=== PATIENT | female | born 1945 | race Caucasian/White ===

== ENCOUNTER → 2016-02-22 | Outpatient (CLI) | payer MEDICARE, MEDICAID ==
[2016-02-22 16:47] LABS: ALBUMIN 3.8 GM/DL (3.2-5.2); ALBUMIN/GLOBULIN RATIO 1.46 (1.00-1.93); ALKALINE PHOSPHATASE 69 U/L (45-117); ALT/SGPT 21 U/L (12-78); ANION GAP 8 MEQ/L (8-16); AST/SGOT 14 U/L (15-37); BILIRUBIN,TOTAL 0.3 MG/DL (0.2-1.0); BLOOD UREA NITROGEN 16 MG/DL (7-18); CALCIUM LEVEL 9.1 MG/DL (8.8-10.2); CARBON DIOXIDE LEVEL 29 MEQ/L (21-32); CHLORIDE LEVEL 108 MEQ/L (98-107); CREATININE FOR GFR 0.91 MG/DL (0.55-1.02); GLOMERULAR FILTRATION RATE > 60.0 (>39); GLUCOSE, FASTING 99 MG/DL (83-110); SODIUM LEVEL 145 MEQ/L (136-145); TOTAL PROTEIN 6.4 GM/DL (6.4-8.2)
[2016-02-22 16:48] LABS: BASO % 0.4 % (0.0-1.0); EOS # 0.1 K/mm3 (0.0-0.50); EOS % 1.3 % (0.0-3.0); LARGE UNSTAINED CELL # 0.2 K/mm3 (0.0-0.4); LARGE UNSTAINED CELL % 2.1 % (0.0-4.0); LYMPH # 1.1 K/mm3 (1.5-4.5); LYMPH % 15.8 % (24.0-44.0); MEAN CORPUSCULAR HEMOGLOBIN 31.9 pg (27.0-33.0); MEAN CORPUSCULAR HGB CONC 35.1 g/dl (32.0-36.5); MEAN CORPUSCULAR VOLUME 91.1 fl (80.0-96.0); MONO # 0.4 K/mm3 (0.0-0.8); NEUTROPHILS # 5.4 K/mm3 (1.8-7.7); NEUTROPHILS % 75.4 % (36.0-66.0); PLATELET COUNT, AUTOMATED 339 k/mm3 (150-450); RED CELL DISTRIBUTION WIDTH 12.7 % (11.5-14.5); WHITE BLOOD COUNT 7.1 K/mm3 (4.0-10.0)
== END ==
LOC: M LAB 15:32
PROVIDERS: ATTEND Psychiatry & Neurology Neurology
DX: F03.90 Unspecified dementia, unspecified severity, without behavioral disturbance, psychotic disturbance, mood disturbance, and anxiety (principal); R41.0 Disorientation, unspecified

== ENCOUNTER → 2019-07-25 | Outpatient (REF) | payer MEDICARE, MEDICAID ==
[~2019-07-25] MED LIST: ASPI-226 PO; BUPR-69 PO; CALC600T17 PO; CYAN100050 PO; DOCU100C16 PO; FENO48TA7 PO; GABA-845 PO; GLUC500C55 PO; MACR100C43 PO; MEMA10TA19 PO; PARO20TA3 PO; PROP10TA56 PO; ROSU10TA6 PO; TAB-TAB3 PO; VITA-145 PO
[2019-07-25 18:00] LABS: APPEARANCE, URINE CLOUDY (CLEAR); BACTERIA, URINE AUTO NEGATIVE (NEGATIVE); BILIRUBIN, URINE AUTO NEGATIVE (NEGATIVE); BLOOD, URINE BLOOD 3+ (NEGATIVE); COLOR, URINE AMBER (YELLOW); GLUCOSE, URINE (UA) AUTO NEGATIVE (NEGATIVE); KETONE, URINE AUTO NEGATIVE (NEGATIVE); LEUKOCYTE ESTERASE, URINE AUTO TRACE (NEGATIVE); MUCUS, URINE SMALL (NEGATIVE); NITRITE, URINE AUTO NEGATIVE (NEGATIVE); PROTEIN, URINE AUTO 2+ mg/dL (NEGATIVE); RBC, URINE AUTO TNTC /HPF (0-3); SQUAMOUS EPITHELIAL CELL UR AU 1 /HPF (0-6); UROBILINOGEN, URINE AUTO 0.2 mg/dL (0.0-2.0); WBC, URINE AUTO 28 /HPF (0-3)
== END ==
LOC: M SMT 17:02
PROVIDERS: ATTEND Nurse Practitioner Women's Health
DX: R31.0 Gross hematuria (principal)
CPT/HCPCS: 81001; 87086; G0463

== ENCOUNTER → 2019-08-22 | Outpatient (REF) | payer MEDICARE, MEDICAID | LOC: M SMT 17:38 | PROVIDERS: ATTEND Urology | DX: N13.30 Unspecified hydronephrosis (principal); R31.0 Gross hematuria ==

== ENCOUNTER → 2019-10-04 | Outpatient (CLI) | payer MEDICARE, MEDICAID | LOC: M LABSMTC 09:32 | PROVIDERS: ATTEND Anesthesiology | DX: Z01.812 Encounter for preprocedural laboratory examination (principal); Z20.828 Contact with and (suspected) exposure to other viral communicable diseases ==

== ENCOUNTER 2019-10-09 09:02 | Day surgery (SDC) | payer MEDICARE, MEDICAID ==
[~2019-10-09] VITALS: Ht 165.1 cm; Wt 76.1 kg
[~2019-10-09 09:02] MED LIST changes: -ASPI-226 PO; -BUPR-69 PO; -CALC600T17 PO; +CONRAY-60 60% 50ML VIAL (Q9961) As Ordered ONE; -CYAN100050 PO; -DOCU100C16 PO; -FENO48TA7 PO; -GABA-845 PO; -GLUC500C55 PO; +KETOROLAC 60MG 2ML VIAL As Ordered ONE; +LIDOCAINE 2% 100MG/5ML SDV (FOR ANES.) As Ordered ONE; -MACR100C43 PO; -MEMA10TA19 PO; +MIDAZOLAM INJ 2MG/2ML VIAL (J2250 PER 1MG) As Ordered ONE; +ONDANSETRON 4MG/2ML VIAL As Ordered ONE; -PARO20TA3 PO; -PROP10TA56 PO; -ROSU10TA6 PO; -TAB-TAB3 PO; -VITA-145 PO; +dexameTHASONE 4 MG/ML 1ML VIAL (J1100 PER 1MG) As Ordered ONE; +fentaNYL 100 MCG/2 ML INJECTION (J3010) As Ordered ONE; +propofoL 200 MG/20 ML VIAL As Ordered ONE
[2019-10-09] MEDS ORDERED: ceFAZolin 2 GM/D5W 50 ML IV BAG (J0690 PER 500MG) As Ordered ONE (09:34)
[2019-10-09] MEDS ORDERED: TAB-TAB3 PO (09:38)
[2019-10-09] MEDS ORDERED: BUPR-69 PO (09:38)
[2019-10-09] MEDS ORDERED: CYAN100050 PO (09:38)
[2019-10-09] MEDS ORDERED: PROP10TA56 PO (09:38)
[2019-10-09] MEDS ORDERED: ROSU10TA6 PO (09:38)
[2019-10-09] MEDS ORDERED: PARO20TA3 PO (09:38)
[2019-10-09] MEDS ORDERED: FENO48TA7 PO (09:38)
[2019-10-09] MEDS ORDERED: GABA-845 PO (09:38)
[2019-10-09] MEDS ORDERED: GLUC500C55 PO (09:38)
[2019-10-09] MEDS ORDERED: ASPI-226 PO (09:38)
[2019-10-09] MEDS ORDERED: MEMA10TA19 PO (09:38)
[2019-10-09] MEDS ORDERED: CALC600T17 PO (09:38)
[2019-10-09] MEDS ORDERED: VITA-145 PO (09:38)
[2019-10-09] MEDS ORDERED: ceFAZolin SOD 2 GM in IV 1 EA IV ONE (10:30)
[2019-10-09] MEDS ORDERED: ePHEDrine SULFATE 25 MG/5 ML(5MG/ML) SYRINGE As Ordered ONE (10:43)
[2019-10-09] MEDS ORDERED: LR 1,000 ML IV SCH (11:45)
[2019-10-09] MEDS ORDERED: fentaNYL 100 MCG/2 ML INJECTION (J3010) IV PRN (11:45)
[2019-10-09] MEDS ORDERED: ONDANSETRON 4MG/2ML VIAL IV PRN (11:45)
[2019-10-09] MEDS ORDERED: PERCOCET 5MG/325MG TAB PO PRN (11:45)
[2019-10-09] MEDS ORDERED: oxyCODONE 5MG TAB PO PRN (11:45)
[2019-10-09] MEDS ORDERED: propofoL 200 MG/20 ML VIAL As Ordered ONE (11:57)
[2019-10-09 12:40] VITALS: BP 136/59
--- NOTE | 2019-10-19 17:23 | REP ---
RETROGRADE PYELOGRAM: 5-VIEWS HISTORY: Right-sided stent placement. Cystoscopy. 29 seconds of fluoroscopy time was reported. FINDINGS: A sequence of five last image hold fluoroscopically obtained spot radiographs of the abdomen document right ureteral cannulation, contrast injection, hydronephrosis, and double pigtail stent placement. MTDD
--- NOTE | 2019-10-28 11:19 | RO ---
DATE OF OPERATION: October 09, 2019 PREOPERATIVE DIAGNOSES: 1. Gross hematuria. 2. Right hydroureteronephrosis. 3. POSTOPERATIVE DIAGNOSES: 4. Right ureteral tumor. 5. Gross hematuria. 6. Right hydroureteronephrosis. PROCEDURES: 1. Cystoscopy. 2. Right ureteroscopy with biopsies of ureteral tumor. 3. Right retrograde pyelogram with intraoperative interpretation of images. 4. Right ureteral stent placement. SURGEON: Emerson Oates MD. FULLING MACHINE OPERATOR: None. ANESTHESIA: General. OPERATIVE INDICATIONS: This is a 74-year-old female who has been having gross hematuria. She was also found to have a moderate amount of hydroureteronephrosis on recent CAT scan. She was brought to the operating room today to work this up. DESCRIPTION OF PROCEDURE: The patient was brought to the operating room and general anesthesia was induced. Prophylactic antibiotics were infused. She was placed in the dorsal lithotomy position, prepped, and draped in the usual sterile fashion. A rigid cystoscope was inserted into the urethral meatus and advanced to the bladder. The bladder was thoroughly examined. The only abnormality that was seen was blood emanating from the right ureteral orifice. At this point, a 5-Polish open-ended ureteral catheter was used to cannulate the right ureteral orifice. A retrograde pyelogram was performed and it was notable for a filling defect in the mid ureter. At this point, a guidewire was advanced up the right collecting system. I went up the right collecting system with a flexible ureteroscope and within the mid ureter, a collection of papillary tumors was seen. Several biopsies were obtained in this area. I also obtained ureteral washings of this area. I then advanced the ureteroscope past this area and there appeared to be several tumors occupying about a 3-4 cm length of the mid right ureter. Beyond that point, the right ureter and kidney were severely hydronephrotic. No additional tumors were seen in the kidney or the ureter beyond the mid level. There were no stones seen. At this point, the ureteroscope was removed along with the access sheath and no additional tumors were seen inside the distal ureter. I then utilized the guidewire to advance a 7-Polish x 22-32 cm JJ ureteral stent into the right collecting system. The wire was removed and there were adequate curls of the stent in the right renal pelvis and in the bladder. The bladder was emptied of all fluids. This marked the conclusion of the procedure. The patient was taken out of the dorsal lithotomy position, awakened from anesthesia, and transported to the recovery room in stable condition. ESTIMATED BLOOD LOSS: 10 mL. COMPLICATIONS: None. SPECIMEN: Biopsies of right ureteral tumors, right ureteral washings for cytology. PLAN: The patient will follow up in the Urology Clinic within the next week or two to go over pathology results. Assuming this comes back as urothelial carcinoma, we will likely need to set her up for a right nephroureterectomy. CHITRA
== END 2019-10-09 12:42 | disposition home or self-care (01) ==
LOC: M SDC 09:02
PROVIDERS: ATTEND Urology
DX: C66.1 Malignant neoplasm of right ureter (principal); N13.4 Hydroureter; Z79.82 Long term (current) use of aspirin
CPT/HCPCS: 52332; 52354; 74420; 88108; 88305; C2617; J0690; J1100; J1885; J2250; J2405; J3010; Q9961

== ENCOUNTER → 2019-11-08 | Outpatient (CLI) | payer MEDICARE, MEDICAID ==
[~2019-11-08] MED LIST changes: +ASPI-226 PO; +BUPR-69 PO; +CALC600T17 PO; -CONRAY-60 60% 50ML VIAL (Q9961) As Ordered ONE; +CYAN100050 PO; +DOCU100C16 PO; +FENO48TA7 PO; +GABA-845 PO; +GLUC500C55 PO; -KETOROLAC 60MG 2ML VIAL As Ordered ONE; -LIDOCAINE 2% 100MG/5ML SDV (FOR ANES.) As Ordered ONE; +MACR100C43 PO; +MEMA10TA19 PO; -MIDAZOLAM INJ 2MG/2ML VIAL (J2250 PER 1MG) As Ordered ONE; -ONDANSETRON 4MG/2ML VIAL As Ordered ONE; +PARO20TA3 PO; +PROP10TA56 PO; +ROSU10TA6 PO; +TAB-TAB3 PO; +VITA-145 PO; -dexameTHASONE 4 MG/ML 1ML VIAL (J1100 PER 1MG) As Ordered ONE; -fentaNYL 100 MCG/2 ML INJECTION (J3010) As Ordered ONE; -propofoL 200 MG/20 ML VIAL As Ordered ONE
== END ==
LOC: M LABSMTC 09:31
PROVIDERS: ATTEND Anesthesiology
DX: Z01.812 Encounter for preprocedural laboratory examination (principal); Z20.828 Contact with and (suspected) exposure to other viral communicable diseases
CPT/HCPCS: C9803; U0003

== ENCOUNTER 2019-11-13 05:59 | Inpatient (IN) | payer MEDICARE, MEDICAID ==
[~2019-11-13] VITALS: Ht 167.6 cm; Wt 76.6 kg
[~2019-11-13 05:59] MED LIST changes: -DOCU100C16 PO; -MACR100C43 PO
[2019-11-13] MEDS ORDERED: LR 1,000 ML IV ONE (06:00)
[2019-11-13] MEDS ORDERED: ceFAZolin SOD 2 GM in IV 1 EA IV ONE (06:00)
[2019-11-13] MEDS ORDERED: BUPIVACAINE HCL 0.25% 30ML VIAL As Ordered ONE (07:11)
[2019-11-13] MEDS ORDERED: LIDOCAINE 1% SDV 30ML VIAL As Ordered ONE (07:11)
[2019-11-13] MEDS ORDERED: ROCURONIUM BROMIDE 50 MG/5 ML VIAL As Ordered ONE ×3 (07:21→11:22)
[2019-11-13] MEDS ORDERED: LIDOCAINE 2% 100MG/5ML SDV (FOR ANES.) As Ordered ONE (07:21)
[2019-11-13] MEDS ORDERED: propofoL 200 MG/20 ML VIAL As Ordered ONE (07:21)
[2019-11-13] MEDS ORDERED: dexameTHASONE 4 MG/ML 1ML VIAL (J1100 PER 1MG) As Ordered ONE (07:21)
[2019-11-13] MEDS ORDERED: fentaNYL 250 MCG/5 ML INJECTION (J3010) As Ordered ONE (07:22)
[2019-11-13] MEDS ORDERED: MIDAZOLAM INJ 2MG/2ML VIAL (J2250 PER 1MG) As Ordered ONE (07:22)
[2019-11-13] MEDS: NS 1,000 ML IV SCH (07:27)
[2019-11-13] MEDS ORDERED: ONDANSETRON 4MG/2ML VIAL IV PRN ×2 (07:30→14:15)
[2019-11-13] MEDS ORDERED: MORPHINE 2 MG/ML 1ML VIAL (J2270) IV PRN (07:30)
[2019-11-13] MEDS ORDERED: ACETAMINOPHEN TAB 650MG DOSE (2X325MG) PO PRN (07:30)
[2019-11-13] MEDS ORDERED: PERCOCET 5MG/325MG TAB PO PRN (07:30)
[2019-11-13] MEDS ORDERED: LACRILUBE (AKWA TEARS) OPHTH OINT 3.5 GM As Ordered ONE (08:00)
[2019-11-13] MEDS ORDERED: SUGAMMADEX SODIUM 500 MG/5 ML VIAL (BRIDION) As Ordered ONE (09:51)
[2019-11-13] MEDS ORDERED: ACETAMINOPHEN 1000MG 100ML IV BTL (OFIRMEV) (J0131 PER 10MG) As Ordered ONE (09:51)
[2019-11-13] MEDS ORDERED: ONDANSETRON 4MG/2ML VIAL As Ordered ONE (09:51)
[2019-11-13] MEDS ORDERED: HYDROmorphone HCL 2 MG/ML 1ML VIAL (J1170) As Ordered ONE (10:12)
[2019-11-13] MEDS ORDERED: ePHEDrine SULFATE 25 MG/5 ML(5MG/ML) SYRINGE As Ordered ONE (10:49)
[2019-11-13 14:14] LABS: HEMATOCRIT 39.6 % (36.0-47.0); HEMOGLOBIN 12.3 g/dl (12.0-15.5); MEAN CORPUSCULAR HEMOGLOBIN 27.8 pg (27.0-33.0); MEAN CORPUSCULAR HGB CONC 31.1 g/dl (32.0-36.5); MEAN CORPUSCULAR VOLUME 89.4 fl (80.0-96.0); PLATELET COUNT, AUTOMATED 306 10^3/uL (150-450); RED BLOOD COUNT 4.43 10^6/uL (4.00-5.40); WHITE BLOOD COUNT 13.1 10^3/uL (4.0-10.0)
[2019-11-13] MEDS ORDERED: LR 1,000 ML IV SCH (14:15)
[2019-11-13] MEDS ORDERED: fentaNYL 100 MCG/2 ML INJECTION (J3010) IV PRN (14:15)
--- NOTE | 2019-11-13 14:41 | ROOPDOC ---
[facility] Report Of Operation Report of Operation DATE OF PROCEDURE: 11/13/19 PREPROCEDURE DIAGNOSES: Urothelial Carcinoma of the Right Ureter. POSTPROCEDURE DIAGNOSES: Urothelial Carcinoma of the Right Ureter. PROCEDURE: Right Robotic-assisted Laparoscopic Nephroureterectomy, Cystoscopy with Incision of the Right Ureteral Orifice. SURGEON: Donald Hansen MD AUTOMOTIVE WINDOW TINTER: Leonor Baker NP ANESTHESIA: General OPERATIVE INDICATIONS: This is a 74 year old female who was found recently to have a invasive high grade urothelial carcinoma occupying a 3-4cm segment of her mid right ureter. She was brought to the operating room today for the above procedure. DESCRIPTION OF PROCEDURE: The patient was brought to the operating room and general anesthesia was induced. Prophylactic antibiotics were infused. The patient was then placed in the dorsal lithotomy position and prepped and draped in the usual sterile fashion. A rigid cystoscope was inserted into the bladder and the previously placed right ureteral stent was seen. At this point a resectoscope was inserted into the bladder and a circumferential incision was made around the right ureteral orifice using a Feldman Knife. The incision was carried down through the muscle layer. Once this was done and hemostasis was established an 18Fr Vázquez catheter was placed and the balloon was inflated with 10cc of sterile water. The catheter was then placed to gravity drainage. The patient was then taken out of the dorsal lithotomy position. She was then repositioned in the left lateral decubitus position. All pressure points were appropriately padded and an axillary roll was placed. She was secured to the table with tape. The patient was then prepped and draped in the usual sterile fashion. The initial incision was for an 8mm port in line with the 11th rib along the lateral rectus margin. A Veress needle was then utilized to achieve the pneumoperitoneum. An 8mm port was then placed in through this incision and through which the camera was inserted. There were no injuries from Veress needle placement or initial trocar placement. The remaining ports were then placed under vision. The right hand robotic port was placed along the costal margin. Another 5 mm port was placed just inferior to the xyphoid for access for a liver retractor. A 12mm robotic port was placed just inferior to the camera port, also on the lateral rectus margin. The left hand robotic port was placed between the anterior-superior iliac spine and the umbilicus. A 15mm corporate law assistant port was placed inferior and medial to the camera port. The robot was then docked. We began by lifting up the liver with a laparoscopic locking Allis clamp. Next the right colon was dissected off of Gerota's fascia. We then Kocherized the duodenum. At this point the inferior vena cava (IVC) was identified. A plane was made onto the lateral aspect of the IVC. The patient had 2 right renal veins and one right renal artery. The artery was carefully dissected and then ligated with Weck clips. It was then transected, leaving 2 Weck clips on the stay side and 1 on the kidney side. Next, a robotic 45mm stapler was utilized to ligate and transect the larger of the two right renal veins. The smaller vein was ligated with Weck clips and then transected. Once the hilum was taken, a plane onto the upper pole of the kidney was created and the right adrenal gland was mobilized off of the kidney. The kidney was then carefully dissected on all sides until it was only connected by the right ureter. The right ureter was then dissected down to the level of the bladder. The bladder was then opened at the right ureterovesical junction and the distal right ureter was released from the bladder. The previously placed stent was taken out with the kidney and ureter. The right kidney and ureter were then placed in a large Endocatch bag for future retrieval. We then checked for hemostasis and it appeared excellent. Jose Francisco hemostatic agent was then placed in the nephrectomy bed. At this point a Juice Bautista drain was brought in through one of the robotic port sites and the distal end of it was placed in the pelvis near the bladder. Once satisfied with hemostasis, the robot was undocked. We then used a Darnell-Meme fascial closure device to place a #0 Vicryl free tie through the fascia of the 15 mm camera port site. We then extended the 12 mm port site and used it as the extraction incision. We then dissected down to the fascia. The fascia was then extended using electrocautery. The muscle was bluntly spread. The specimen was then extracted through this incision. It was handed off the table to send for pathology. We then closed the fascia of the extraction incision using a running #0 Vicryl suture. At this point, the abdomen was reinsufflated and we looked back in with the camera and there was no bleeding underneath the extraction site. No abdominal contents were caught within the closure either. We then removed all the ports under direct vision and there was no bleeding from any of the port sites. At this point, the previously placed #0 Vicryl free ties were tied down and all the incisions were thoroughly irrigated. The drain was secured to the skin with #2-0 Ethilon suture. The subcutaneous tissue of the extraction incision was then reapproximated using interrupted #3-0 Vicryl suture. We then closed the skin of each site using a running #4-0 subcuticular Monocryl stitch. Local anesthetic was then applied to each incision and Dermabond was then applied and this marked the conclusion of the procedure. The patient was then taken out of the left lateral decubitus position, awakened from anesthesia and transported to the recovery room in stable condition. ESTIMATED BLOOD LOSS: 25 mL INTRAOPERATIVE COMPLICATIONS: None SPECIMENS: Right kidney and ureter. PLAN: The patient will be admitted to the hospital postoperatively and she will be discharged home once her renal function is stable and she is tolerating a regular diet. DONALD HANSEN MD Nov 13, 2019 14:37
[2019-11-13 14:44] LABS: CALCIUM LEVEL 8.7 MG/DL (8.8-10.2); CREATININE FOR GFR 1.32 MG/DL (0.55-1.30); GLOMERULAR FILTRATION RATE 41.7 (>39); POTASSIUM SERUM 4.1 MEQ/L (3.5-5.1)
[2019-11-13] MEDS: oxyCODONE 5MG TAB PO PRN ×2 (14:50→15:21)
[2019-11-13] MEDS ORDERED: oxyCODONE 5MG TAB As Ordered ONE (15:23)
[2019-11-13 16:00] VITALS: BP 112/65
[2019-11-13 16:30] VITALS: BP 119/64
[2019-11-13] MEDS: ceFAZolin SOD 1 GM in D5W MINI-BAG PLUS 50 ML IV SCH (16:47)
[2019-11-13 17:30] VITALS: BP 128/61
[2019-11-13] MEDS: PARoxetine 20 MG TAB PO SCH (17:40)
[2019-11-13 18:30] VITALS: BP 123/62
[2019-11-13] MEDS: PERCOCET 5MG/325MG TAB PO PRN (19:31)
[2019-11-13 20:00] VITALS: BP 128/64
[2019-11-13] MEDS: MEMANTINE 5MG TABLET (NAMENDA) PO SCH (21:52)
[2019-11-13] MEDS: PROPRANOLOL 10 MG TAB PO SCH (21:53)
[2019-11-13] MEDS: GABAPENTIN 400 MG CAP PO SCH (21:53)
[2019-11-13] MEDS: DOCUSATE SODIUM 100 MG CAP PO SCH (21:53)
[2019-11-14] MEDS: NS 1,000 ML IV SCH (00:24)
[2019-11-14] MEDS: ceFAZolin SOD 1 GM in D5W MINI-BAG PLUS 50 ML IV SCH (00:24)
[2019-11-14] MEDS: PERCOCET 5MG/325MG TAB PO PRN ×2 (00:35→06:09)
[2019-11-14 01:29] VITALS: BP 116/59
[2019-11-14 06:04] VITALS: BP 105/60
[2019-11-14] MEDS: HEPARIN SOD (PORCINE) 5000UNITS/ML 1ML VIAL/SYRINGE SC SCH ×2 (06:08→14:36)
[2019-11-14 08:09] LABS: HEMOGLOBIN 10.2 g/dl (12.0-15.5); MEAN CORPUSCULAR HEMOGLOBIN 28.5 pg (27.0-33.0); MEAN CORPUSCULAR HGB CONC 31.8 g/dl (32.0-36.5); MEAN CORPUSCULAR VOLUME 89.7 fl (80.0-96.0); PLATELET COUNT, AUTOMATED 293 10^3/uL (150-450); RED BLOOD COUNT 3.58 10^6/uL (4.00-5.40); WHITE BLOOD COUNT 12.7 10^3/uL (4.0-10.0)
[2019-11-14 08:15] LABS: HEMATOCRIT 32.1 % (36.0-47.0)
[2019-11-14 08:24] LABS: CALCIUM LEVEL 7.8 MG/DL (8.8-10.2); CREATININE FOR GFR 1.46 MG/DL (0.55-1.30); GLOMERULAR FILTRATION RATE 37.1 (>39); POTASSIUM SERUM 4.1 MEQ/L (3.5-5.1)
[2019-11-14] MEDS ORDERED: buPROPion 100 MG TAB PO SCH (09:00)
[2019-11-14] MEDS ORDERED: ROSUVASTATIN 10 MG TAB (CRESTOR) PO SCH (09:00)
--- NOTE | 2019-11-14 09:02 | IPNPDOC ---
Subjective Review oF Systems Chief Complaint The patient is a 74-year-old female admitted with a reason for visit of Urothelial Carcinoma. Events since Last Encounter No acute events o/n. Good pain control. No vomiting. No f/c/ns. Objective Physical Examination General Exam: Alert, Cooperative, No Acute Distress ABDOMEN EXAM: Soft, Other (nondistended; incisions clean/dry/intact; REY w/ serosanguinous output) Other physical findings catheter draining clear yellow urine Vital Signs/I&O Vital Signs Date Time Temp Pulse Resp B/P (MAP) Pulse Ox O2 Delivery O2 Flow Rate FiO2 11/14/19 06:39 18 11/14/19 06:04 98.4 74 105/60 (75) 90 Nasal Cannula 2.0 I&O- Last 24 Hours up to 6 AM 11/14/19 06:00 Intake Total 4350 ml Output Total 1335 ml Balance 3015 ml Laboratory Data Labs 24H Laboratory Tests 2 11/13/19 13:57: Nucleated Red Blood Cells % (auto) 0.0, Anion Gap 7L, Glomerular Filtration Rate 41.7, Calcium Level 8.7L 11/14/19 06:45: Nucleated Red Blood Cells % (auto) 0.0, Anion Gap 5L, Glomerular Filtration Rate 37.1L, Calcium Level 7.8L CBC/BMP Laboratory Tests 11/13/19 13:57 11/14/19 06:45 Assessment/Plan Date Seen The patient was seen on 11/14/19. Patient Summary This is a 74 y/o F POD1 s/p R robotic nephroureterectomy. She is doing well. Hb 10.2. Cr 1.5. Vitals stable. Good UOP. Normal REY output. Plan/VTE VTE Prophylaxis Ordered?: Yes VTE Exclusion Mechanical Proph: N/A:VTE Prophy Ordered VTE Exclusion Pharmacological: N/A:VTE Prophy Ordered Plan/Urinary Catheter Urinary Catheter: Other Catheter: (catheter will need to stay in for at least 7 days) Plan - d/c IVF - wean O2 as tolerated - percocet prn pain - ambulate - cont home meds - strict I/Os - SCDs in bed - SQH - incentive spirometry - advance diet as tolerated DONALD HANSEN MD Nov 14, 2019 09:02
[2019-11-14] MEDS: GABAPENTIN 400 MG CAP PO SCH (09:59)
[2019-11-14 10:00] VITALS: BP_SYST 105; BP_SYST 66; BP_DIAS 40; BP_DIAS 60
[2019-11-14] MEDS: PROPRANOLOL 10 MG TAB PO SCH (10:00)
[2019-11-14] MEDS: MEMANTINE 5MG TABLET (NAMENDA) PO SCH (10:00)
[2019-11-14] MEDS: DOCUSATE SODIUM 100 MG CAP PO SCH (10:01)
[2019-11-14] MEDS: PARoxetine 20 MG TAB PO SCH (10:01)
[2019-11-14 10:05] VITALS: BP 138/72
[2019-11-14 14:00] VITALS: BP 126/62
[2019-11-14] MEDS ORDERED: DOCU100C16 PO (16:40)
[2019-11-14] MEDS ORDERED: MACR100C43 PO (16:40)
--- NOTE | 2019-11-18 13:10 | DS ---
DATE OF ADMISSION: 11/13/2019 DATE OF DISCHARGE: 11/14/2019 ADMISSION DIAGNOSIS: Urothelial carcinoma of the right ureter. DISCHARGE DIAGNOSIS: Urothelial carcinoma of the right ureter. ADMITTING PHYSICIAN: Emerson Oates MD DISCHARGING PHYSICIAN: Emerson Oates MD PROCEDURE PERFORMED: Right robotic assisted laparoscopic nephroureterectomy on 11/13/2019. HISTORY OF PRESENT ILLNESS: This is a 74-year-old female who was found to have high-grade urothelial carcinoma of the mid right ureter on recent cystoscopy. She was brought to the operating room for the above-listed procedure and was admitted to the hospital postoperatively. HOSPITALIZATION COURSE: The patient was admitted postoperatively after undergoing the above-listed procedure. Her postoperative course was unremarkable. On postoperative day #1, all of her labs were within acceptable limits. Her hemoglobin was 10.2. Her serum creatinine was 1.46. She had excellent urine output. She had minimal output from her Juice Bautista drain. Her Juice Prat drain was therefore removed on postoperative day #1. She ambulated well without any difficulty. She was tolerating a regular diet. She had very good pain control and did not require any narcotic pain medication during her stay. Since she was doing well, she was deemed ready for discharge home on postoperative day #1. Her Juice Bautista drain was removed. She was discharged home on postoperative day #1 with a catheter in place. She will followup in the urology clinic in approximately 2 weeks for catheter removal and to discuss her pathology results. CHITRA
== END 2019-11-14 17:15 | disposition home or self-care (01) | DRG 658 ==
LOC: M OR 05:59 → M MS5PR 16:08
PROVIDERS: ADMIT Urology; ATTEND Urology
PROC: 0TT64ZZ Resection of Right Ureter, Percutaneous Endoscopic Approach (ICD-10-PCS; 2019-11-13)
PROC: 8E0W4CZ Robotic Assisted Procedure of Trunk Region, Percutaneous Endoscopic Approach (ICD-10-PCS; 2019-11-13)
PROC: 0TT04ZZ Resection of Right Kidney, Percutaneous Endoscopic Approach (ICD-10-PCS; principal; 2019-11-13 07:30)
DX: C66.1 Malignant neoplasm of right ureter (principal)

== ENCOUNTER → 2019-11-24 | Outpatient (CLI) | payer MEDICARE, MEDICAID ==
[~2019-11-24] MED LIST changes: +CYSTO-CONRAY II 17.2% 250ML VIAL (Q9958) As Ordered ONE; +DOCU100C16 PO; +MACR100C43 PO
--- NOTE | 2019-11-27 13:38 | REP ---
CYSTOGRAM The procedure was performed by JUN Galindo, under the direct supervision of Dr. Edward. The images were reviewed with Dr. Edward prior to dictation. The patient arrived to the department with an indwelling Vázquez catheter. 250 mL of Cysto-Conray II was instilled into the bladder in a retrograde flow. The bladder is normal in position and contour. There is no evidence of extravasation or urethral reflux. IMPRESSION: There is no evidence of extravasation or urethral reflux. 0.1 minutes of fluoroscopy time is utilized for this procedure. MTDD
== END ==
LOC: M RADPRO 11:26
PROVIDERS: ATTEND Nurse Practitioner Women's Health
DX: N13.30 Unspecified hydronephrosis (principal)
CPT/HCPCS: 51610; 74430; Q9958

== ENCOUNTER → 2019-11-27 | Outpatient (REF) | payer MEDICARE, MEDICAID ==
[~2019-11-27] MED LIST changes: -CYSTO-CONRAY II 17.2% 250ML VIAL (Q9958) As Ordered ONE
[2019-11-27 13:56] LABS: CALCIUM LEVEL 9.4 MG/DL (8.8-10.2); CREATININE FOR GFR 1.61 MG/DL (0.55-1.30); GLOMERULAR FILTRATION RATE 33.1 (>39); POTASSIUM SERUM 4.6 MEQ/L (3.5-5.1)
[2019-11-27 14:11] LABS: HEMATOCRIT 37.3 % (36.0-47.0); HEMOGLOBIN 11.4 g/dl (12.0-15.5); MEAN CORPUSCULAR HEMOGLOBIN 28.2 pg (27.0-33.0); MEAN CORPUSCULAR HGB CONC 30.6 g/dl (32.0-36.5); MEAN CORPUSCULAR VOLUME 92.3 fl (80.0-96.0); PLATELET COUNT, AUTOMATED 528 10^3/uL (150-450); RED BLOOD COUNT 4.04 10^6/uL (4.00-5.40); WHITE BLOOD COUNT 9.2 10^3/uL (4.0-10.0)
== END ==
LOC: M LABSMT 10:03
PROVIDERS: ATTEND Urology
DX: C68.9 Malignant neoplasm of urinary organ, unspecified (principal); Z90.5 Acquired absence of kidney

== ENCOUNTER → 2020-03-22 | Outpatient (REF) | payer MEDICARE, MEDICAID ==
[~2020-03-22] MED LIST changes: -VITA-145 PO; +VITAD1000T PO
== END ==
LOC: M LAB REF 16:53
PROVIDERS: ATTEND Internal Medicine Nephrology
DX: N39.0 Urinary tract infection, site not specified (principal)

== ENCOUNTER → 2020-05-14 | Outpatient (CLI) | payer MEDICARE, MEDICAID ==
[2020-05-14 17:27] LABS: BASO % 0.4 % (0.0-1.0); EOS # 0.1 10^3/uL (0.0-0.5); EOS % 1.5 % (0.0-3.0); HEMATOCRIT 38.2 % (36.0-47.0); LYMPH # 1.6 10^3/uL (1.5-5.0); MEAN CORPUSCULAR HEMOGLOBIN 28.6 pg (27.0-33.0); MEAN CORPUSCULAR HGB CONC 31.4 g/dl (32.0-36.5); MONO # 0.6 10^3/uL (0.0-0.8); MONO % 7.4 % (2.0-8.0); NEUTROPHILS # 5.3 10^3/uL (1.5-8.5); NEUTROPHILS % 69.6 % (36.0-66.0); PLATELET COUNT, AUTOMATED 329 10^3/uL (150-450); WHITE BLOOD COUNT 7.6 10^3/uL (4.0-10.0)
[2020-05-14 17:52] LABS: ALBUMIN 3.8 GM/DL (3.2-5.2); BILIRUBIN,TOTAL 0.2 MG/DL (0.2-1.0); CALCIUM LEVEL 9.1 MG/DL (8.8-10.2); CHOLESTEROL RISK RATIO 2.367 (<5); CREATININE FOR GFR 1.59 MG/DL (0.55-1.30); GLOMERULAR FILTRATION RATE 33.5 (>39); POTASSIUM SERUM 4.3 MEQ/L (3.5-5.1); TOTAL PROTEIN 6.6 GM/DL (6.4-8.2)
== END ==
LOC: M LAB 16:20
PROVIDERS: ATTEND Physician Assistant
DX: C67.9 Malignant neoplasm of bladder, unspecified (principal); E78.2 Mixed hyperlipidemia

== ENCOUNTER → 2020-05-14 | Outpatient (CLI) | payer MEDICARE, MEDICAID ==
[~2020-05-14] MED LIST changes: +ISOVUE-370 76% 100ML VIAL As Ordered ONE
--- NOTE | 2020-05-14 17:23 | ECGEPIP ---
[facility] Test Date: 2020-05-14 Pat Name: BISI MARRUFO Department: Room: - Gender: Female Marketing Analytics Specialist: NICK : [id number] Requested By: DONALD Linton Order Number: [id number] Reading MD: Warren Mccormick Measurements Intervals [place] Rate: 65 P: 25 ND: 198 QRS: 5 QRSD: 62 T: 72 QT: 406 QTc: 422 Interpretive Statements Normal sinus rhythm Low voltage QRS Cannot rule out Anteroseptal infarct , age undetermined Comparison tracing not on file Electronically Signed on 05-14-2020 17:23:08 EDT by Warren Mccormick
[2020-05-14 17:27] LABS: HEMATOCRIT 38.7 % (36.0-47.0); MEAN CORPUSCULAR HEMOGLOBIN 28.3 pg (27.0-33.0); MEAN CORPUSCULAR VOLUME 91.3 fl (80.0-96.0); PLATELET COUNT, AUTOMATED 326 10^3/uL (150-450); RED BLOOD COUNT 4.24 10^6/uL (4.00-5.40); WHITE BLOOD COUNT 7.8 10^3/uL (4.0-10.0)
[2020-05-14 17:49] LABS: CREATININE FOR GFR 1.6 MG/DL (0.55-1.30)
[2020-05-14 17:50] LABS: CALCIUM LEVEL 9.2 MG/DL (8.8-10.2); GLOMERULAR FILTRATION RATE 33.3 (>39); POTASSIUM SERUM 4.3 MEQ/L (3.5-5.1)
--- NOTE | 2020-05-14 18:22 | REP ---
INDICATION: PREOP TESTING LAB 1ST EKG 2ND XR 3RD CT 4TH. COMPARISON: . TECHNIQUE: Upright PA and lateral chest. FINDINGS: The lung wiggins are clear. Cardiac size is normal. There is scoliosis convex left at the thoracolumbar junction and right in the lumbar spine. The toni, mediastinum, and skeletal structures are otherwise unremarkable. IMPRESSION: No acute cardiopulmonary findings. Scoliosis. <Electronically signed by Luis Felipe Sung > 05/14/20 [id number]
--- NOTE | 2020-05-17 08:14 | REP ---
INDICATION: URERTHERAL CARCINOMA LAB 1ST EKG 2ND XR 3RD CT 4TH. COMPARISON: None TECHNIQUE: Axial precontrast, contrast-enhanced and delayed images from the lung bases to the pubic symphysis using 100 cc Isovue 370 intravenous contrast material. Coronal and sagittal reformations obtained. This CT examination was performed using the following dose reduction techniques: Automated exposure control, adjustment of mA and/or kv according to the patient's size, and the use of iterative reconstruction technique. FINDINGS: Patient is status post right nephrectomy. The left kidney includes multiple peripelvic simple cysts measuring up to 5 cm and no evidence for perinephric stranding, nephrolithiasis, hydronephrosis or mass lesion. Liver includes vague 1.1 cm hypodensity at the dome suggesting small cyst or hemangioma. Spleen, pancreas, gallbladder, bilateral adrenal glands are normal. The enteric system is without obstruction or acute inflammatory process. Scattered diverticula noted without acute diverticulitis. Pelvis demonstrates relatively normal uterus with possible small right fundal calcified fibroid. The bladder demonstrates enhancing lobulated mass along the posterior right bladder wall/trigone region suspicious for neoplastic process. Surrounding pelvic fat is unremarkable and no obvious pelvic adenopathy is identified. No ascites. No free air. No obvious adenopathy. Abdominal aorta without aneurysm or dissection. Musculoskeletal structures demonstrate degenerative changes without acute osseous abnormality. The lung bases demonstrate chronic appearing interstitial changes and bronchiectasis along with moderate areas of ground-glass opacity primarily involving the lingula and bases (left greater than right). There appears to be a 2.8 x 1.8 cm rounded structure along the right heart border which appears to be fluid density on precontrast and enhanced images but cannot exclude some element of enhancement on delayed images. While benign entities like pericardial cyst or duplication cyst are likely, mass lesion cannot be excluded and no prior examinations are available for comparison. IMPRESSION: 1. Nodular enhancing lesion along the right bladder trigone region suspicious for neoplasm and correlation is required. No associated pelvic fluid, stranding, or adenopathy noted. The patient is status post right nephrectomy. 2. Left kidney demonstrates benign peripelvic cysts. 3. Nonacute findings as noted above. 4. Questionable rounded low-density entity along the right-side of the cardiac border within the lower thorax may represent benign lesion and less likely mass although correlation and follow-up is required as no prior examinations are available for comparison. <Electronically signed by Elder Frank > 05/17/20 [id number]
== END ==
LOC: M RAD 16:06 → M LAB 16:06
PROVIDERS: ATTEND Urology
DX: Z01.818 Encounter for other preprocedural examination (principal); E78.2 Mixed hyperlipidemia; M41.9 Scoliosis, unspecified; N32.9 Bladder disorder, unspecified; I51.9 Heart disease, unspecified; Z90.5 Acquired absence of kidney; C68.9 Malignant neoplasm of urinary organ, unspecified
CPT/HCPCS: 36415; 71046; 74178; 80048; 85027; 93005; Q9967

== ENCOUNTER → 2020-06-04 | Outpatient (CLI) | payer MEDICARE, MEDICAID ==
[~2020-06-04] MED LIST changes: -ISOVUE-370 76% 100ML VIAL As Ordered ONE; +SERO1TAB3 PO; +THERTAB52 PO
== END ==
LOC: M LABSMTC 10:40
PROVIDERS: ATTEND Anesthesiology
DX: Z01.812 Encounter for preprocedural laboratory examination (principal); Z20.822 Contact with and (suspected) exposure to COVID-19

== ENCOUNTER 2020-06-09 09:07 | Day surgery (SDC) | payer MEDICARE, MEDICAID ==
[~2020-06-09] VITALS: Ht 162.6 cm; Wt 77.1 kg
[~2020-06-09 09:07] MED LIST changes: +LR 1,000 ML IV ONE; +ceFAZolin SOD 2 GM in IV 1 EA IV ONE
[2020-06-09] MEDS ORDERED: MIDAZOLAM INJ 2MG/2ML VIAL (J2250 PER 1MG) As Ordered ONE (10:15)
[2020-06-09] MEDS ORDERED: propofoL 200 MG/20 ML VIAL As Ordered ONE (10:15)
[2020-06-09] MEDS ORDERED: ROCURONIUM BROMIDE 50 MG/5 ML VIAL As Ordered ONE ×2 (10:15→11:24)
[2020-06-09] MEDS ORDERED: LIDOCAINE 2% 100MG/5ML SDV (FOR ANES.) As Ordered ONE (10:15)
[2020-06-09] MEDS ORDERED: fentaNYL 250 MCG/5 ML INJECTION (J3010) As Ordered ONE (10:15)
[2020-06-09] MEDS ORDERED: dexameTHASONE 4 MG/ML 1ML VIAL (J1100 PER 1MG) As Ordered ONE (10:15)
[2020-06-09] MEDS ORDERED: LACRILUBE (AKWA TEARS) OPHTH OINT 3.5 GM As Ordered ONE (10:46)
[2020-06-09] MEDS ORDERED: ePHEDrine SULFATE 25 MG/5 ML(5MG/ML) SYRINGE As Ordered ONE (10:50)
[2020-06-09] MEDS ORDERED: SUGAMMADEX SODIUM 500 MG/5 ML VIAL (BRIDION) As Ordered ONE (11:34)
[2020-06-09] MEDS ORDERED: ONDANSETRON 4MG/2ML VIAL As Ordered ONE (11:37)
[2020-06-09] MEDS ORDERED: ACETAMINOPHEN TAB 650MG DOSE (2X325MG) PO PRN (12:05)
[2020-06-09] MEDS ORDERED: ONDANSETRON 4MG/2ML VIAL IV PRN (12:05)
[2020-06-09] MEDS ORDERED: LR 1,000 ML IV SCH (12:05)
[2020-06-09] MEDS ORDERED: HYDROMORPHONE HCL 0.5 MG/ 0.5 ML SYRINGE (J1170 PER 1) IV PRN (12:05)
[2020-06-09] MEDS ORDERED: fentaNYL 100 MCG/2 ML INJECTION (J3010) IV PRN (12:05)
[2020-06-09] MEDS ORDERED: oxyCODONE 5MG TAB PO PRN (12:05)
--- NOTE | 2020-06-09 12:44 | RO ---
OPERATIVE NOTE DATE OF OPERATION: 06/09/2020 PREOPERATIVE DIAGNOSIS: Urothelial carcinoma. POSTOPERATIVE DIAGNOSIS: Urothelial carcinoma. PROCEDURE: Cystoscopy, transurethral resection of bladder tumors (greater than 5 cm). SURGEON: Emerson Oates MD. PLASMA SPECIALIST: None. ANESTHESIA: General. OPERATION: This is a 75-year-old female with a history of high-grade urothelial carcinoma of the upper urinary tract status post right radical nephroureterectomy previously. On recent surveillance cystoscopy, she was found to have large tumors on the right side of her bladder, as well as near the bladder neck. She was brought to the operating room today for treatment. DESCRIPTION OF PROCEDURE: The patient was brought to the operating room and general anesthesia was induced. Prophylactic antibiotics were infused. She was placed in the dorsolithotomy position, prepped, and draped in the usual sterile fashion. At this point, a resectoscope was inserted into the urethral meatus and advanced to the bladder using a visual obturator. The bladder was then thoroughly examined. At this point, there were collection of tumors measuring around 6 cm occupying the right side of the bladder up to the right lateral wall. There were also tumors right at the bladder neck at approximately 7 o'clock. All of these tumors were then resected using a bipolar loop. Once the more superficial tumors were resected, that was sent off as bladder tumors. We then resected the base of all the bladder tumors and that was sent off as resection of bladder tumor base. Once we were certain all of the specimens were cleared from the bladder, hemostasis was obtained using coagulation current. Once satisfied with hemostasis, we observed the left ureteral orifice and it continued to efflux clear urine. The resectoscope was then removed from the bladder and then an 18-Macedonian Vázquez catheter was inserted into the bladder. The balloon was filled with 10 mL of sterile water and then the catheter was connected to gravity drainage. This marked the conclusion of the procedure. The patient was then taken out of the dorsolithotomy position, awakened from anesthesia, and transferred to the recovery room in stable condition. ESTIMATED BLOOD LOSS: 15 mL. COMPLICATIONS: None. SPECIMENS: Bladder tumors, resections of bladder tumor base. PLAN: The patient will follow-up in the urology clinic in approximately one week for catheter removal and for the pathology results.
[2020-06-09 14:00] VITALS: BP 150/63
== END 2020-06-09 14:15 | disposition home or self-care (01) ==
LOC: M SDC 09:07
PROVIDERS: ATTEND Urology
DX: C67.9 Malignant neoplasm of bladder, unspecified (principal); I10 Essential (primary) hypertension; E78.5 Hyperlipidemia, unspecified; F41.9 Anxiety disorder, unspecified; F32.9 Major depressive disorder, single episode, unspecified; F72 Severe intellectual disabilities; F03.90 Unspecified dementia, unspecified severity, without behavioral disturbance, psychotic disturbance, mood disturbance, and anxiety; Z79.82 Long term (current) use of aspirin; Z79.899 Other long term (current) drug therapy
CPT/HCPCS: 52240; 88309; J0690; J1100; J2250; J2405; J3010

== ENCOUNTER → 2020-09-20 | Outpatient (REF) | payer MEDICARE, MEDICAID ==
[~2020-09-20] MED LIST changes: -FENO48TA7 PO; +FENO48TA8 PO; +GABA-283 PO; -GABA-845 PO; -GLUC500C55 PO; +GLUC500C65 PO; -LR 1,000 ML IV ONE; -ceFAZolin SOD 2 GM in IV 1 EA IV ONE
== END ==
LOC: M SMT 13:43
PROVIDERS: ATTEND Urology
DX: C68.9 Malignant neoplasm of urinary organ, unspecified (principal)

== ENCOUNTER → 2020-09-27 | Outpatient (REF) | payer MEDICARE, MEDICAID ==
[~2020-09-27] MED LIST changes: +FENO48TA7 PO; -FENO48TA8 PO
[2020-09-27 14:03] LABS: FERRITIN 8 NG/ML (8-252); FOLATE > 24.0 NG/ML; IRON (FE) 84 UG/DL (50-170); PERCENT SATURATION 19.4 % (13.2-45.0); TOTAL IRON BINDING CAPACITY 434 UG/DL (250-450); VITAMIN B12 LEVEL > 2000 PG/ML
== END ==
LOC: M LAB REF 12:46
PROVIDERS: ATTEND Internal Medicine Nephrology
DX: D64.9 Anemia, unspecified (principal)

== ENCOUNTER → 2021-01-24 | Outpatient (REF) | payer MEDICARE, MEDICAID ==
[~2021-01-24] MED LIST changes: -FENO48TA7 PO; +FENO48TA8 PO
== END ==
LOC: M SMT 17:14
PROVIDERS: ATTEND Urology
DX: C68.9 Malignant neoplasm of urinary organ, unspecified (principal)
CPT/HCPCS: 52000; 88108; G0463

== ENCOUNTER → 2021-04-25 | Outpatient (REF) | payer MEDICARE, MEDICAID | LOC: M SMT 17:07 | PROVIDERS: ATTEND Urology | DX: C67.9 Malignant neoplasm of bladder, unspecified (principal); C68.9 Malignant neoplasm of urinary organ, unspecified ==

== ENCOUNTER → 2021-09-20 | Outpatient (REF) | payer MEDICARE, MEDICAID | LOC: M SMT 16:44 | PROVIDERS: ATTEND Urology | DX: C68.9 Malignant neoplasm of urinary organ, unspecified (principal) ==

== ENCOUNTER → 2022-03-20 | Outpatient (REF) | payer MEDICARE, MEDICAID | LOC: M SMT 16:49 | PROVIDERS: ATTEND Urology | DX: R82.89 Other abnormal findings on cytological and histological examination of urine (principal); C68.9 Malignant neoplasm of urinary organ, unspecified ==

== ENCOUNTER → 2022-10-02 | Outpatient (REF) | payer MEDICARE, MEDICAID ==
[~2022-10-02] MED LIST changes: +CYAN-1 PO; -CYAN100050 PO; -GABA-283 PO; +GABA-284 PO
== END ==
LOC: M SMT 13:19
PROVIDERS: ATTEND Urology
DX: C68.9 Malignant neoplasm of urinary organ, unspecified (principal)

== ENCOUNTER → 2023-04-10 | Outpatient (REF) | payer MEDICARE, MEDICAID | LOC: M SMT 12:58 | PROVIDERS: ATTEND Urology | DX: C68.9 Malignant neoplasm of urinary organ, unspecified (principal); C67.9 Malignant neoplasm of bladder, unspecified ==